=== PATIENT | male | born 1975 | race Caucasian/White ===

== ENCOUNTER 2023-10-23 11:43 | Emergency (ER) | payer OTHER, SELFPAY ==
[2023-10-23] VITALS (56 sets, daily range): BP systolic 83–133; BP diastolic 49–72; PULSE 69–98; RESP 13–29; TEMP 37.1–38.8; O2SAT 94–100; BMI 25.8
--- NOTE | 2023-10-23 12:12 | DI.RAD.S_ITS ---
PROCEDURE: XR CHEST 1V INDICATIONS: suspected sepsis TECHNIQUE: One view of the chest was acquired. COMPARISON: None. FINDINGS: Surgical changes and devices: None. Lungs and pleura: Lungs are clear. No pleural effusions or pneumothorax. Mediastinum: Mediastinal contours appear normal. Heart size is normal. Bones and chest wall: No suspicious bony lesions. Overlying soft tissues appear unremarkable. IMPRESSION: No acute cardiopulmonary abnormality is seen. Dictated by: Capo Cartwright M.D. on 10/23/2023 at 12:58 Approved by: Capo Cartwright M.D. on 10/23/2023 at 12:59
[2023-10-23 12:26] LABS: Add Manual Diff / Slide Review NO; Basophils Absolute Auto 0 /uL (0-100); Basophils Percent Auto 0.1 % (0-2); Eosinophils Absolute Auto 0 /uL (0-450); Eosinophils Percent Auto 0.1 % (2-4); Hematocrit 37.8 % (41-53); Hemoglobin 12.8 g/dL (13.5-17.5); Lymphocytes Absolute Auto 600 /uL (1100-4500); Lymphocytes Percent Auto 7.4 % (25-40); Mean Corpuscular HGB Conc 33.9 % (30-36); Mean Corpuscular Hemoglobin 30.2 PG (26-34); Mean Corpuscular Volume 89.3 fL (80-100); Monocytes Absolute Auto 200 /uL (0-900); Monocytes Percent Auto 2.1 % (3-14); Neutrophils Absolute Auto 7500 /uL (1500-7000); Neutrophils Percent Auto 90.3 % (50-75); Platelet Count 202 X10^3/uL (150-400); Red Blood Cell Count 4.23 X10^6/uL (4.5-5.9); Red Cell Distribution Width 13.2 % (11.6-14.8); White Blood Cell Count 8.4 X10^3/uL (4.5-11.0)
[2023-10-23] MEDS: SODIUM CHLORIDE 0.9% 1,000 ML 1000 ML IV ×2 (12:26→14:43)
[2023-10-23 12:27] LABS: INR 1.1 (0.9-1.3); Prothrombin Time 12.5 SECONDS (9.4-12.5)
[2023-10-23 12:29] LABS: PTT Partial Thromboplastin Tim 22 SECONDS (25.1-36.5)
[2023-10-23 12:33] LABS: Lactate (Lactic Acid) 1.6 mmol/L (0.7-2.1)
[2023-10-23 12:34] LABS: Alanine Aminotransferase 112 IU/L (<50); Albumin 4.3 g/dL (3.5-5.0); Albumin Globulin Ratio 1.3 (1.0-2.8); Alkaline Phosphatase 98 U/L (38-126); Aspartate Aminotransferase 53 IU/L (17-59); Bilirubin Total 0.8 mg/dL (0.2-1.3); Blood Urea Nitrogen 14 mg/dL (9-20); Calcium 8.6 mg/dL (8.4-10.2); Carbon Dioxide 27 mmol/L (22-32); Chloride 103 mmol/L (98-107); Estimated Glomerular Filt Rate > 60 mL/min (>60); Globulin 3.3 g/dL (1.7-4.1); Glucose 103 mg/dL (70-100); HEMOLYSIS < 15 (0-50); Lipase 116 U/L (23-300); Sodium 137 mmol/L (137-145); Total Protein 7.6 g/dL (6.3-8.2)
[2023-10-23 12:51] LABS: Procalcitonin 0.159 ng/mL (<0.5)
--- NOTE | 2023-10-23 13:09 | ED.MALEGU ---
HPI - Male Genitourinary <Brendan Turcios MD - Last Filed: 10/29/23 14:14> General Chief complaint: Urogenital-Male Stated complaint: post surgery, poss infection Time Seen by Provider: 10/23/23 12:48 Source: patient Mode of arrival: Wheelchair History of Present Illness HPI Narrative: Patient here with . Complains dysuria and fever. Patient is postop day 8 status post TURP by [facility] at [facility]. Had follow up visit in the office yesterday and had Silverio catheter removed. However has had very painful urination since then. Fever noted. Was not on any antibiotics after surgery. Related Data Allergies Allergy/AdvReac Type Severity Reaction Status Date / Time No Known Drug Allergies Allergy Verified 10/23/23 11:47 Review of Systems <Brendan Turcios MD - Last Filed: 10/29/23 14:14> Review of Systems Narrative: GENERAL: negative chills, fatigue, positive malaise, fever, sweats. HEENT: negative sinus pain, ear pain, sore throat RESPIRATORY: negative dyspnea, cough CARDIOVASCULAR: negative chest pain, palpitations GASTROINTESTINAL: negative nausea, vomiting, abdominal pain : Positive dysuria, negative frequency, hematuria MUSCULOSKELETAL: negative muscle or bony pain SKIN: negative rash, skin lesions NEUROLOGIC: negative weakness, numbness Patient History <Brendan Turcios MD - Last Filed: 10/29/23 14:14> Social History Smoking Status: Never smoker Smoking Status: Never smoker Substance Use Type: does not use Exam <Brendan Turcios MD - Last Filed: 10/29/23 14:14> Narrative Exam Narrative: GENERAL: in no distress, not toxic not dyspneic HEAD: Normocephalic. EYES: Pupils equal round ENT: Mucous membranes moist. NECK: Trachea midline. CARDIOVASCULAR: Regular rate and rhythm RESPIRATORY: Clear to auscultation. Breath sounds equal bilaterally. No wheezes, rales, or rhonchi. GASTROINTESTINAL: Abdomen soft, non-tender abdomen is soft flat nontender no peritoneal signs no CVA tenderness EXTREMITIES: No gross deformities. BACK: No flank tenderness. NEURO: AOx4. SKIN: Warm and dry PSYCH: Not anxious, is cooperative Initial Vital Signs Initial Vital Signs: Vital Signs Temperature 101.4 F H 07/09/24 11:47 Pulse Rate 98 H 10/23/23 11:47 Respiratory Rate 24 10/23/23 11:47 Blood Pressure 103/57 L 10/23/23 11:47 Pulse Oximetry 98 10/23/23 11:47 Oxygen Delivery Method Room Air 10/23/23 11:47 <Milly Perez DO - Last Filed: 10/24/23 18:11> Initial Vital Signs Initial Vital Signs: Vital Signs Temperature 101.4 F H 10/23/23 11:47 Pulse Rate 98 H 10/23/23 11:47 Respiratory Rate 24 10/23/23 11:47 Blood Pressure 103/57 L 10/23/23 11:47 Pulse Oximetry 98 10/23/23 11:47 Oxygen Delivery Method Room Air 10/23/23 11:47 Course <Brendan Turcios MD - Last Filed: 10/29/23 14:14> Orders Ordered: Discontinued Medications Acetaminophen (Acetaminophen 325 Mg Tablet) 975 mg PO NOW ONE Stop: 10/23/23 13:09 Last Admin: 10/23/23 13:19 Dose: 975 mg Documented By: MATTEO Acetaminophen (Acetaminophen 325 Mg Tablet) 975 mg PO NOW ONE Stop: 10/23/23 20:14 Last Admin: 10/23/23 20:20 Dose: 975 mg Documented By: JUANITA Acetaminophen (Acetaminophen 325 Mg Tablet) 975 mg PO NOW ONE Stop: 10/24/23 03:07 Last Admin: 10/24/23 03:11 Dose: 975 mg Documented By: MICHAEL Sodium Chloride (Normal Saline 0.9%) 1,000 mls @ 1,000 mls/hr IV BOLUS ONE Stop: 10/23/23 13:11 Last Infusion: 10/23/23 13:58 Dose: Infused Documented By: Admin: 10/23/23 12:26 Dose: 1,000 mls/hr Documented By: JUANITA Ceftriaxone Sodium 2,000 mg/ (Sodium Chloride) 100 mls @ 200 mls/hr IV NOW ONE Stop: 10/23/23 13:12 Last Infusion: 10/23/23 14:30 Dose: Infused Documented By: Admin: 10/23/23 13:20 Dose: 200 mls/hr Documented By: MATTEO Sodium Chloride (Normal Saline 0.9%) 1,000 mls @ 1,000 mls/hr IV BOLUS ONE Stop: 10/23/23 15:30 Last Infusion: 10/23/23 15:42 Dose: Infused Documented By: Admin: 10/23/23 14:43 Dose: 1,000 mls/hr Documented By: JUANITA Sodium Chloride (Normal Saline 0.9%) 1,000 mls @ 500 mls/hr IV BOLUS ONE Stop: 10/23/23 17:39 Last Infusion: 10/23/23 16:55 Dose: Infused Documented By: Admin: 10/23/23 15:44 Dose: 500 mls/hr Documented By: JUANITA Levofloxacin (Levaquin) 750 mg in 150 mls @ 100 mls/hr IV NOW ONE Stop: 10/23/23 18:19 Last Infusion: 10/23/23 18:33 Dose: Infused Documented By: Admin: 10/23/23 17:06 Dose: 100 mls/hr Documented By: MARCO Sodium Chloride (Normal Saline 0.9%) 1,000 mls @ 150 mls/hr IV CONT THEE Last Infusion: 10/24/23 07:23 Dose: 150 mls/hr Documented By: Admin: 10/24/23 03:00 Dose: 150 mls/hr Documented By: Infusion: 10/24/23 02:58 Dose: Infused Documented By: Admin: 10/23/23 20:20 Dose: 150 mls/hr Documented By: JUANITA Ketorolac Tromethamine (Ketorolac 30 Mg/Ml Vial) 15 mg IV NOW ONE Stop: 10/23/23 21:11 Last Admin: 10/23/23 21:14 Dose: 15 mg Documented By: JUANITA Ondansetron HCl (Ondansetron 4 Mg/2 Ml Inj) 4 mg IV NOW PRN PRN Reason: Nausea And Vomiting Ondansetron HCl (Ondansetron 4 Mg Odt) 4 mg SL NOW PRN PRN Reason: Nausea And Vomiting Vital Signs Vital signs: Vital Signs - 8 hr 10/23/23 21:20 10/23/23 21:20 10/23/23 21:30 Temperature Pulse Rate 85 87 Respiratory Rate 16 24 Blood Pressure 118/58 L Pulse Oximetry 97 95 Oxygen Delivery Method 10/23/23 21:40 10/23/23 21:40 10/23/23 22:00 Temperature Pulse Rate 86 82 Respiratory Rate 19 24 Blood Pressure 104/55 L Pulse Oximetry 95 96 Oxygen Delivery Method Room Air 10/23/23 22:00 10/23/23 22:20 10/23/23 22:20 Temperature 100.9 F H Pulse Rate 79 Respiratory Rate 22 Blood Pressure 100/54 L 99/54 L Pulse Oximetry 95 Oxygen Delivery Method Room Air 10/23/23 22:29 10/23/23 22:29 10/23/23 22:30 Temperature 100.9 F H 100.9 F H Pulse Rate 80 Respiratory Rate 21 Blood Pressure Pulse Oximetry 95 Oxygen Delivery Method 10/23/23 22:40 10/23/23 22:40 10/23/23 22:45 Temperature Pulse Rate 84 81 Respiratory Rate 22 22 Blood Pressure 83/50 L Pulse Oximetry 94 94 Oxygen Delivery Method Room Air 10/23/23 22:45 10/23/23 23:00 10/23/23 23:00 Temperature Pulse Rate 76 Respiratory Rate 21 Blood Pressure 93/50 L 91/49 L Pulse Oximetry 95 Oxygen Delivery Method 10/23/23 23:20 10/23/23 23:20 10/23/23 23:30 Temperature Pulse Rate 69 69 Respiratory Rate 18 21 Blood Pressure 86/50 L Pulse Oximetry 95 95 Oxygen Delivery Method Room Air 10/23/23 23:40 10/23/23 23:40 10/24/23 00:00 Temperature Pulse Rate 70 Respiratory Rate 22 Blood Pressure 96/52 L 95/50 L Pulse Oximetry 95 Oxygen Delivery Method 10/24/23 00:00 10/24/23 00:20 10/24/23 00:20 Temperature Pulse Rate 70 66 Respiratory Rate 21 23 Blood Pressure 97/54 L Pulse Oximetry 95 95 Oxygen Delivery Method 10/24/23 00:30 10/24/23 00:40 10/24/23 00:40 Temperature Pulse Rate 64 64 Respiratory Rate 21 20 Blood Pressure 113/55 L Pulse Oximetry 97 97 Oxygen Delivery Method 10/24/23 01:00 10/24/23 01:00 10/24/23 01:20 Temperature Pulse Rate 69 68 Respiratory Rate 18 24 Blood Pressure 116/56 L Pulse Oximetry 97 97 Oxygen Delivery Method 10/24/23 01:20 10/24/23 01:30 10/24/23 01:41 Temperature Pulse Rate 63 66 Respiratory Rate 20 22 Blood Pressure 96/54 L Pulse Oximetry 98 99 Oxygen Delivery Method Room Air 10/24/23 01:41 10/24/23 02:00 10/24/23 02:00 Temperature Pulse Rate 68 Respiratory Rate 22 Blood Pressure 107/59 L 112/58 L Pulse Oximetry 98 Oxygen Delivery Method 10/24/23 02:20 10/24/23 02:20 10/24/23 02:30 Temperature Pulse Rate 69 72 Respiratory Rate 23 25 H Blood Pressure 118/59 L Pulse Oximetry 97 98 Oxygen Delivery Method Room Air 10/24/23 02:40 10/24/23 02:40 10/24/23 04:53 Temperature 100.9 F H 100.4 F H Pulse Rate 77 Respiratory Rate 18 Blood Pressure 110/60 Pulse Oximetry 97 Oxygen Delivery Method Room Air <Milly Perez DO - Last Filed: 10/24/23 18:11> Orders Ordered: Discontinued Medications Acetaminophen (Acetaminophen 325 Mg Tablet) 975 mg PO NOW ONE Stop: 10/23/23 13:09 Last Admin: 10/23/23 13:19 Dose: 975 mg Documented By: MATTEO Acetaminophen (Acetaminophen 325 Mg Tablet) 975 mg PO NOW ONE Stop: 10/23/23 20:14 Last Admin: 10/23/23 20:20 Dose: 975 mg Documented By: JUANITA Acetaminophen (Acetaminophen 325 Mg Tablet) 975 mg PO NOW ONE Stop: 10/24/23 03:07 Last Admin: 10/24/23 03:11 Dose: 975 mg Documented By: MICHAEL Sodium Chloride (Normal Saline 0.9%) 1,000 mls @ 1,000 mls/hr IV BOLUS ONE Stop: 10/23/23 13:11 Last Infusion: 10/23/23 13:58 Dose: Infused Documented By: Admin: 10/23/23 12:26 Dose: 1,000 mls/hr Documented By: JUANITA Ceftriaxone Sodium 2,000 mg/ (Sodium Chloride) 100 mls @ 200 mls/hr IV NOW ONE Stop: 10/23/23 13:12 Last Infusion: 10/23/23 14:30 Dose: Infused Documented By: Admin: 10/23/23 13:20 Dose: 200 mls/hr Documented By: MATTEO Sodium Chloride (Normal Saline 0.9%) 1,000 mls @ 1,000 mls/hr IV BOLUS ONE Stop: 10/23/23 15:30 Last Infusion: 10/23/23 15:42 Dose: Infused Documented By: Admin: 10/23/23 14:43 Dose: 1,000 mls/hr Documented By: JUANITA Sodium Chloride (Normal Saline 0.9%) 1,000 mls @ 500 mls/hr IV BOLUS ONE Stop: 10/23/23 17:39 Last Infusion: 10/23/23 16:55 Dose: Infused Documented By: Admin: 10/23/23 15:44 Dose: 500 mls/hr Documented By: JUANITA Levofloxacin (Levaquin) 750 mg in 150 mls @ 100 mls/hr IV NOW ONE Stop: 10/23/23 18:19 Last Infusion: 10/23/23 18:33 Dose: Infused Documented By: Admin: 10/23/23 17:06 Dose: 100 mls/hr Documented By: MARCO Sodium Chloride (Normal Saline 0.9%) 1,000 mls @ 150 mls/hr IV CONT THEE Last Infusion: 10/24/23 07:23 Dose: 150 mls/hr Documented By: Admin: 10/24/23 03:00 Dose: 150 mls/hr Documented By: Infusion: 10/24/23 02:58 Dose: Infused Documented By: Admin: 10/23/23 20:20 Dose: 150 mls/hr Documented By: JUANITA Ketorolac Tromethamine (Ketorolac 30 Mg/Ml Vial) 15 mg IV NOW ONE Stop: 10/23/23 21:11 Last Admin: 10/23/23 21:14 Dose: 15 mg Documented By: JUANITA Ondansetron HCl (Ondansetron 4 Mg/2 Ml Inj) 4 mg IV NOW PRN PRN Reason: Nausea And Vomiting Ondansetron HCl (Ondansetron 4 Mg Odt) 4 mg SL NOW PRN PRN Reason: Nausea And Vomiting Vital Signs Vital signs: Vital Signs - 8 hr 10/23/23 21:20 10/23/23 21:20 10/23/23 21:30 Temperature Pulse Rate 85 87 Respiratory Rate 16 24 Blood Pressure 118/58 L Pulse Oximetry 97 95 Oxygen Delivery Method 10/23/23 21:40 10/23/23 21:40 10/23/23 22:00 Temperature Pulse Rate 86 82 Respiratory Rate 19 24 Blood Pressure 104/55 L Pulse Oximetry 95 96 Oxygen Delivery Method Room Air 10/23/23 22:00 10/23/23 22:20 10/23/23 22:20 Temperature 100.9 F H Pulse Rate 79 Respiratory Rate 22 Blood Pressure 100/54 L 99/54 L Pulse Oximetry 95 Oxygen Delivery Method Room Air 10/23/23 22:29 10/23/23 22:29 10/23/23 22:30 Temperature 100.9 F H 100.9 F H Pulse Rate 80 Respiratory Rate 21 Blood Pressure Pulse Oximetry 95 Oxygen Delivery Method 10/23/23 22:40 10/23/23 22:40 10/23/23 22:45 Temperature Pulse Rate 84 81 Respiratory Rate 22 22 Blood Pressure 83/50 L Pulse Oximetry 94 94 Oxygen Delivery Method Room Air 10/23/23 22:45 10/23/23 23:00 10/23/23 23:00 Temperature Pulse Rate 76 Respiratory Rate 21 Blood Pressure 93/50 L 91/49 L Pulse Oximetry 95 Oxygen Delivery Method 10/23/23 23:20 10/23/23 23:20 10/23/23 23:30 Temperature Pulse Rate 69 69 Respiratory Rate 18 21 Blood Pressure 86/50 L Pulse Oximetry 95 95 Oxygen Delivery Method Room Air 10/23/23 23:40 10/23/23 23:40 10/24/23 00:00 Temperature Pulse Rate 70 Respiratory Rate 22 Blood Pressure 96/52 L 95/50 L Pulse Oximetry 95 Oxygen Delivery Method 10/24/23 00:00 10/24/23 00:20 10/24/23 00:20 Temperature Pulse Rate 70 66 Respiratory Rate 21 23 Blood Pressure 97/54 L Pulse Oximetry 95 95 Oxygen Delivery Method 10/24/23 00:30 10/24/23 00:40 10/24/23 00:40 Temperature Pulse Rate 64 64 Respiratory Rate 21 20 Blood Pressure 113/55 L Pulse Oximetry 97 97 Oxygen Delivery Method 10/24/23 01:00 10/24/23 01:00 10/24/23 01:20 Temperature Pulse Rate 69 68 Respiratory Rate 18 24 Blood Pressure 116/56 L Pulse Oximetry 97 97 Oxygen Delivery Method 10/24/23 01:20 10/24/23 01:30 10/24/23 01:41 Temperature Pulse Rate 63 66 Respiratory Rate 20 22 Blood Pressure 96/54 L Pulse Oximetry 98 99 Oxygen Delivery Method Room Air 10/24/23 01:41 10/24/23 02:00 10/24/23 02:00 Temperature Pulse Rate 68 Respiratory Rate 22 Blood Pressure 107/59 L 112/58 L Pulse Oximetry 98 Oxygen Delivery Method 10/24/23 02:20 10/24/23 02:20 10/24/23 02:30 Temperature Pulse Rate 69 72 Respiratory Rate 23 25 H Blood Pressure 118/59 L Pulse Oximetry 97 98 Oxygen Delivery Method Room Air 10/24/23 02:40 10/24/23 02:40 10/24/23 04:53 Temperature 100.9 F H 100.4 F H Pulse Rate 77 Respiratory Rate 18 Blood Pressure 110/60 Pulse Oximetry 97 Oxygen Delivery Method Room Air MDM - Male Genitourinary <Brendan Turcios MD - Last Filed: 10/29/23 14:14> Lab Data 10/23/23 12:01 10/23/23 12:01 Labs: Lab Results 10/23/23 10/23/23 Range/Units 12:01 13:40 WBC 8.4 (4.5-11.0) X10^3/uL RBC 4.23 L (4.5-5.9) X10^6/uL Hgb 12.8 L (13.5-17.5) g/dL Hct 37.8 L (41-53) % MCV 89.3 (80-100) fL MCH 30.2 (26-34) PG MCHC 33.9 (30-36) % RDW 13.2 (11.6-14.8) % Plt Count 202 (150-400) X10^3/uL Neut % (Auto) 90.3 H (50-75) % Lymph % (Auto) 7.4 L (25-40) % [place] % (Auto) 2.1 L (3-14) % Eos % (Auto) 0.1 L (2-4) % Baso % (Auto) 0.1 (0-2) % Neut # (Auto) 7500 H (9846-7953) /uL Lymph # (Auto) 600 L (2726-9777) /uL [place] # (Auto) 200 (0-900) /uL Eos # (Auto) 0 (0-450) /uL Baso # (Auto) 0 (0-100) /uL PT 12.5 (9.4-12.5) SECONDS INR 1.1 (0.9-1.3) APTT 22 L (25.1-36.5) SECONDS Sodium 137 (137-145) mmol/L Potassium 4.0 (3.4-5.1) mmol/L Chloride 103 (98-107) mmol/L Carbon Dioxide 27 (22-32) mmol/L BUN 14 (9-20) mg/dL Creatinine 1.00 (0.66-1.25) mg/dL Estimated GFR > 60 (>60) mL/min BUN/Creatinine Ratio 14.0 (6-22) Glucose 103 H (70-100) mg/dL Lactate 1.6 (0.7-2.1) mmol/L Calcium 8.6 (8.4-10.2) mg/dL Total Bilirubin 0.8 (0.2-1.3) mg/dL AST 53 (17-59) IU/L ALT 112 H (<50) IU/L Alkaline Phosphatase 98 (38-126) U/L Total Protein 7.6 (6.3-8.2) g/dL Albumin 4.3 (3.5-5.0) g/dL Globulin 3.3 (1.7-4.1) g/dL Albumin/Globulin Ratio 1.3 (1.0-2.8) Lipase 116 (23-300) U/L Procalcitonin 0.159 (<0.5) ng/mL Urine Color Yellow Urine Appearance Cloudy Urine pH 6.0 (4.5-8.0) Ur Specific [place] 1.020 (1.000-1.035) Urine Protein 2+ H (Negative) Urine Glucose (UA) Negative (Negative) g/dL Urine Ketones Negative (NEGATIVE) Urine Occult Blood 3+ H (Negative) Urine Nitrate Positive H (Negative) Urine Bilirubin Negative (NEGATIVE) Urine Urobilinogen 0.2 (0.2) E.U./dL Ur Leukocyte Esterase 1+ H (NEGATIVE) Urine RBC 5-10/hpf H (0-5/HPF) Urine WBC 30-100/hpf H (0-5/HPF) Ur Squamous Epith Cells None seen (0-5/HPF) Urine Bacteria Many (>30) H (None) Urine Yeast 0-1/hpf (None) Ur Culture Indicated? Specimen cultured Vol Urine Centrifuged 10ml (spun) Imaging Data CT scan - abdomen/pelvis: Radiologist's Impression: [address] [address] [address] Scan Report Signed Patient: Ranjit Tolnetino MR#: [id number] : 1975 Acct:[id number] Age/Sex: 48 / M Date of Service: 10/23/23 Loc: ED Accession Number: [id number] Procedure: CT abdomen pelvis w con Ordering Provider: Brendan Turcios MD PROCEDURE: CT ABDOMEN PELVIS W CON INDICATIONS: Recent TURP/fever TECHNIQUE: After the administration of intravenous contrast, axial sections acquired from the lung bases to the pubic symphysis. Coronal and sagittal reformats were performed. For radiation dose reduction, the following was used: automated exposure control, adjustment of mA and/or kV according to patient size. COMPARISON: None. FINDINGS: Image quality: Diagnostic. Lower Chest: No significant findings. ABDOMEN: Liver: No solid mass. Gallbladder: No radiopaque gallstones or wall thickening. Biliary ducts: No biliary dilation. Pancreas: No ductal dilation. Spleen: Size is within normal limits. Adrenal Glands: No adrenal nodules. Kidneys and Ureters: No hydronephrosis. No solid mass. No complex renal cystic lesion which requires follow up. Stomach and Bowel: Normal colonic caliber, without significant wall thickening. Normal appendix. Peritoneum: No abnormal intraperitoneal fluid. No free air. Ventral Wall: No significant ventral hernia. Abdominal Nodes: No retroperitoneal or mesenteric adenopathy by size criteria. Vessels: Aorta and inferior vena cava are normal in size. Atherosclerotic vascular calcifications. PELVIS: Pelvic Organs: Postsurgical changes within the prostate from recent TURP. Bladder: Mild diffuse urinary bladder wall thickening. Urinary bladder diverticulum, largest along the right posterolateral aspect. Small gas within the urinary bladder, likely postprocedural. Pelvic Nodes: No enlarged lymph nodes. Miscellaneous: No inguinal hernias are seen. Bones: No aggressive osseous abnormality. IMPRESSION: Postsurgical changes from TURP. Mild diffuse urinary bladder wall thickening with bladder diverticulum. Findings may be secondary to chronic bladder outlet obstruction. Recommend correlation for cystitis. No organized fluid collections within the pelvis. No other acute findings within the abdomen or pelvis. Dictated by: Capo Cartwright M.D. on 10/23/2023 at 13:49 Approved by: Capo Cartwright M.D. on 10/23/2023 at 13:54 [facility] Narrative Medical decision making narrative: Patient here with . Complains dysuria and fever. Patient is postop day 8 status post TURP by [facility] at [facility]. Had follow up visit in the office yesterday and had Silverio catheter removed. However has had very painful urination since then. Fever noted. Was not on any antibiotics after surgery. After history and exam CBC CMP lactic acid procalcitonin urinalysis Tylenol normal saline Zofran CT abdomen pelvis blood culture Rocephin [facility] Medical records reviewed: Surgery not done here Differential considered: Includes but not limited to sepsis postoperative abscess UTI pyelonephritis Lab Test results independently reviewed as above. Pertinent findings: WBC 8.4 hemoglobin 12.8 INR 1.1 sodium 137 potassium 4.0 BUN 14 creatinine 1.0 GFR greater than 60 glucose 103 procalcitonin 0.159 lactic acid 1.6 Urine positive nitrate WBC 3100 Imaging studies independently reviewed: CT abdomen pelvis positive for cystitis Consultations: Spoke with [facility] nurse practitioner Michelle, she will contact attending on-call, I spoke with Dr. Bradshaw, agrees patient should be admitted and transferred for continuity of care. Hospitalist to admit. Recommends Levaquin IV to be started Treatments: Tylenol normal saline Zofran Rocephin Re-evaluations: Patient and aware need for transfer. Blood pressure has improved systolic 102. Antibiotics have been started. Discussion: Appropriate for transfer continuity of care. Antibiotics have started. 3 L normal saline given and blood pressure has improved. No vasopressors are indicated at this time. Patient not toxic appearing. Diagnosis: Sepsis 7:[address] Turcios: Tam: Sign out to Dr Perez, awaiting for hospitalist at [facility] to call back for acceptance. Urology group has been contacted and accepted patient <Milly Perez, DO - Last Filed: 10/24/23 18:11> Lab Data Labs: Lab Results 10/23/23 10/23/23 Range/Units 12:01 13:40 WBC 8.4 (4.5-11.0) X10^3/uL RBC 4.23 L (4.5-5.9) X10^6/uL Hgb 12.8 L (13.5-17.5) g/dL Hct 37.8 L (41-53) % MCV 89.3 (80-100) fL MCH 30.2 (26-34) PG MCHC 33.9 (30-36) % RDW 13.2 (11.6-14.8) % Plt Count 202 (150-400) X10^3/uL Neut % (Auto) 90.3 H (50-75) % Lymph % (Auto) 7.4 L (25-40) % [place] % (Auto) 2.1 L (3-14) % Eos % (Auto) 0.1 L (2-4) % Baso % (Auto) 0.1 (0-2) % Neut # (Auto) 7500 H (0638-7315) /uL Lymph # (Auto) 600 L (5744-6323) /uL [place] # (Auto) 200 (0-900) /uL Eos # (Auto) 0 (0-450) /uL Baso # (Auto) 0 (0-100) /uL PT 12.5 (9.4-12.5) SECONDS INR 1.1 (0.9-1.3) APTT 22 L (25.1-36.5) SECONDS Sodium 137 (137-145) mmol/L Potassium 4.0 (3.4-5.1) mmol/L Chloride 103 (98-107) mmol/L Carbon Dioxide 27 (22-32) mmol/L BUN 14 (9-20) mg/dL Creatinine 1.00 (0.66-1.25) mg/dL Estimated GFR > 60 (>60) mL/min BUN/Creatinine Ratio 14.0 (6-22) Glucose 103 H (70-100) mg/dL Lactate 1.6 (0.7-2.1) mmol/L Calcium 8.6 (8.4-10.2) mg/dL Total Bilirubin 0.8 (0.2-1.3) mg/dL AST 53 (17-59) IU/L ALT 112 H (<50) IU/L Alkaline Phosphatase 98 (38-126) U/L Total Protein 7.6 (6.3-8.2) g/dL Albumin 4.3 (3.5-5.0) g/dL Globulin 3.3 (1.7-4.1) g/dL Albumin/Globulin Ratio 1.3 (1.0-2.8) Lipase 116 (23-300) U/L Procalcitonin 0.159 (<0.5) ng/mL Urine Color Yellow Urine Appearance Cloudy Urine pH 6.0 (4.5-8.0) Ur Specific [place] 1.020 (1.000-1.035) Urine Protein 2+ H (Negative) Urine Glucose (UA) Negative (Negative) g/dL Urine Ketones Negative (NEGATIVE) Urine Occult Blood 3+ H (Negative) Urine Nitrate Positive H (Negative) Urine Bilirubin Negative (NEGATIVE) Urine Urobilinogen 0.2 (0.2) E.U./dL Ur Leukocyte Esterase 1+ H (NEGATIVE) Urine RBC 5-10/hpf H (0-5/HPF) Urine WBC 30-100/hpf H (0-5/HPF) Ur Squamous Epith Cells None seen (0-5/HPF) Urine Bacteria Many (>30) H (None) Urine Yeast 0-1/hpf (None) Ur Culture Indicated? Specimen cultured Vol Urine Centrifuged 10ml (spun) [facility] Narrative Medical decision making narrative: Patient here with . Complains dysuria and fever. Patient is postop day 8 status post TURP by [facility] at [facility]. Had follow up visit in the office yesterday and had Silverio catheter removed. However has had very painful urination since then. Fever noted. Was not on any antibiotics after surgery. After history and exam CBC CMP lactic acid procalcitonin urinalysis Tylenol normal saline Zofran CT abdomen pelvis blood culture Rocephin [facility] Medical records reviewed: Surgery not done here Differential considered: Includes but not limited to sepsis postoperative abscess UTI pyelonephritis Lab Test results independently reviewed as above. Pertinent findings: WBC 8.4 hemoglobin 12.8 INR 1.1 sodium 137 potassium 4.0 BUN 14 creatinine 1.0 GFR greater than 60 glucose 103 procalcitonin 0.159 lactic acid 1.6 Urine positive nitrate WBC 3100 Imaging studies independently reviewed: CT abdomen pelvis positive for cystitis Consultations: Spoke with [facility] Urology nurse practitioner Michelle, she will contact attending on-call, I spoke with Dr. Bradshaw, agrees patient should be admitted and transferred for continuity of care. Hospitalist to admit. Recommends Levaquin IV to be started Treatments: Tylenol normal saline Zofran Rocephin Re-evaluations: Patient and aware need for transfer. Blood pressure has improved systolic 102. Antibiotics have been started. Discussion: Appropriate for transfer continuity of care. Antibiotics have started. 3 L normal saline given and blood pressure has improved. No vasopressors are indicated at this time. Patient not toxic appearing. Diagnosis: Sepsis 7:[address] Turcios: Tam: Sign out to Dr Perez, awaiting for hospitalist at [facility] to call back for acceptance. Urology group has been contacted and accepted patient. 10/23/2023 Dr. Perez: Patient was seen evaluated by myself. Patient is well-appearing currently. States history dyslipidemia, was on Flomax stopped that after his surgery. No other daily medications. Blood pressure has improved from earlier, he is afebrile, blood pressure is 115 systolic with a pulse in the 80s patient states he feels improved still has a little bit of a headache. Fever also had improved. Patient's labs were reviewed overall fairly appropriate, CT abdomen pelvis was also reviewed. Patient received Zofran, fluids 3 L total, Tylenol, Rocephin and Levaquin . Dr. Turcios spoke with patient's Urology team, Dr. Bradshaw at [facility] they have accepted for transfer but waiting beds as they are currently full for continuity of care. We will Re contract [facility] in a couple hours has not thought they may have opening available. Patient has been with maintenance fluids at 150 ml/hr. Spoke with Dr. Jauregui, hospitalist at [facility], patient has a improved still continues to be febrile intermittently, blood pressure most recently is 110/60 has not had occasional 100 systolic but has maintain map above 65. Lowest pressure was in the 80s earlier this afternoon prior to receiving 3 L total and continuing on maintenance fluids. Discussed patient received Rocephin, Levaquin several doses of Tylenol and dose of Toradol. Reviewed patient's labs and CT imaging as well as urinalysis. Patient is accepted for transfer. Critical Care Time <Milly Perez, DO - Last Filed: 10/24/23 18:11> Critical Care Time Critical Care Time: Yes Total Critical Care Time: 45 Attestation: The high probability of a clinically significant, sudden or life threatening deterioration of the cardiac system(s) required my full and direct attention, intervention and personal management. The aggregate critical care time was [--] minutes. This time is in addition to time spent performing reported procedures but includes the following: [x] Data Review and interpretation [x] Patient assessment and monitoring of vital signs [x] Documentation [x] Medication orders and management Discharge Plan Departure Patient Disposition: [facility] Clinical Impression: Sepsis Urinary tract infection Qualifiers: Urinary tract infection type: site unspecified Hematuria presence: with hematuria Qualified Code(s): N39.0 - Urinary tract infection, site not specified
[2023-10-23] MEDS: ACETAMINOPHEN 325 MG TABLET 975 MG PO ×2 (13:19→20:20)
[2023-10-23] MEDS: cefTRIAXone 2,000 MG in SODIUM CHLORIDE 0.9% 100 ML 200 MG IV (13:20)
--- NOTE | 2023-10-23 14:00 | DI.CT.S_ITS ---
PROCEDURE: CT ABDOMEN PELVIS W CON INDICATIONS: Recent TURP/fever TECHNIQUE: After the administration of intravenous contrast, axial sections acquired from the lung bases to the pubic symphysis. Coronal and sagittal reformats were performed. For radiation dose reduction, the following was used: automated exposure control, adjustment of mA and/or kV according to patient size. COMPARISON: None. FINDINGS: Image quality: Diagnostic. Lower Chest: No significant findings. ABDOMEN: Liver: No solid mass. Gallbladder: No radiopaque gallstones or wall thickening. Biliary ducts: No biliary dilation. Pancreas: No ductal dilation. Spleen: Size is within normal limits. Adrenal Glands: No adrenal nodules. Kidneys and Ureters: No hydronephrosis. No solid mass. No complex renal cystic lesion which requires follow up. Stomach and Bowel: Normal colonic caliber, without significant wall thickening. Normal appendix. Peritoneum: No abnormal intraperitoneal fluid. No free air. Ventral Wall: No significant ventral hernia. Abdominal Nodes: No retroperitoneal or mesenteric adenopathy by size criteria. Vessels: Aorta and inferior vena cava are normal in size. Atherosclerotic vascular calcifications. PELVIS: Pelvic Organs: Postsurgical changes within the prostate from recent TURP. Bladder: Mild diffuse urinary bladder wall thickening. Urinary bladder diverticulum, largest along the right posterolateral aspect. Small gas within the urinary bladder, likely postprocedural. Pelvic Nodes: No enlarged lymph nodes. Miscellaneous: No inguinal hernias are seen. Bones: No aggressive osseous abnormality. IMPRESSION: Postsurgical changes from TURP. Mild diffuse urinary bladder wall thickening with bladder diverticulum. Findings may be secondary to chronic bladder outlet obstruction. Recommend correlation for cystitis. No organized fluid collections within the pelvis. No other acute findings within the abdomen or pelvis. Dictated by: Capo Cartwright M.D. on 10/23/2023 at 13:49 Approved by: Capo Cartwright M.D. on 10/23/2023 at 13:54
[2023-10-23 14:06] LABS: Bilirubin Urine UA NEGATIVE (NEGATIVE); Color Urine UA YELLOW; Glucose Urine UA NEGATIVE (Negative); Ketones Urine UA NEGATIVE (NEGATIVE); Leukocyte Esterase Urine UA 1+ (NEGATIVE); Nitrite Urine UA POSITIVE (Negative); Occult Blood Urine UA 3+ (Negative); Protein Urine UA 2+ (Negative); Urobilinogen Urine UA 0.2 E.U./dL (0.2)
[2023-10-23 14:08] LABS: Appearance Urine UA CLOUDY; Urine Volume 10mL (spun)
[2023-10-23 14:17] LABS: Bacteria Urine Many (>30); Culture Indicated Urine Specimen Cultured; RBC Urine 5-10/HPF (0-5/HPF); Squamous Epithelial Cell Urine None Seen (0-5/HPF); WBC Urine 30-100/HPF (0-5/HPF)
[2023-10-23] MEDS: SODIUM CHLORIDE 0.9% 1,000 ML 500 ML IV (15:44)
[2023-10-23] MEDS: levoFLOXacin 750 MG/150 ML PIGGYBACK 100 MG IV (17:06)
[2023-10-23] MEDS: SODIUM CHLORIDE 0.9% 1,000 ML 150 ML IV (20:20)
[2023-10-23] MEDS: KETOROLAC 30 MG/ML VIAL 15 MG IV (21:14)
--- NOTE | 2023-10-23 22:10 | PC.NURSE ---
patient moved to a hospital bed from the stretcher for comfort while waiting for a bed assignment at [facility]. at bedside.
[2023-10-24] VITALS (24 sets, daily range): BP systolic 87–119; BP diastolic 48–70; PULSE 61–79; RESP 17–25; TEMP 37.1–38.3; O2SAT 94–100
[2023-10-24] MEDS: SODIUM CHLORIDE 0.9% 1,000 ML 150 ML IV (03:00)
[2023-10-24] MEDS: ACETAMINOPHEN 325 MG TABLET 975 MG PO (03:11)
== END 2023-10-24 07:25 | disposition short-term general hospital (02) ==
PROVIDERS: Emergency Medicine; Emergency Provider Emergency Medicine
DX: N39.0 Urinary tract infection, site not specified (principal); A41.9 Sepsis, unspecified organism
CPT/HCPCS: 36415; 71045; 74177; 80053; 81001; 83605; 83690; 84145; 85025; 85610; 85730; 87040; 87077; 87086; 87186; 96361; 96365; 96375; 99285; 99291; J0696; J1885; J1956; Q9967